=== PATIENT | male | born 1945 | race Caucasian/White ===

== ENCOUNTER 2017-11-15 19:44 | Emergency (ER) | payer SELFPAY ==
[~2017-11-15] VITALS: Ht 172.7 cm; Wt 65.0 kg
[2017-11-16 01:57] VITALS: BP 143/88
== END 2017-11-16 01:57 | disposition home or self-care (01) ==
LOC: ER 20:10
DX: Z59.0 Homelessness (principal)
CPT/HCPCS: 99283

== ENCOUNTER 2017-12-03 12:30 | Emergency (ER) | payer SELFPAY ==
[~2017-12-03] VITALS: Ht 170.2 cm; Wt 63.0 kg
[2017-12-03 12:32] VITALS: BP 125/76
[2017-12-03] MEDS ORDERED: PERMETHRIN 5% CREAM 60GM TOP ONE (13:00)
== END 2017-12-05 14:16 | disposition home or self-care (01) ==
LOC: ER 12-04 17:13
DX: B86 Scabies (principal); E11.9 Type 2 diabetes mellitus without complications; Z59.0 Homelessness
CPT/HCPCS: 99283; Z7610

== ENCOUNTER 2018-06-16 16:30 | Emergency (ER) | payer MEDICAID, MEDICARE ==
[~2018-06-16] VITALS: Ht 177.8 cm; Wt 76.0 kg
[2018-06-16 17:22] VITALS: BP 165/75
== END 2018-06-16 18:44 | disposition home or self-care (01) ==
LOC: ER 16:30
DX: Z59.0 Homelessness (principal)
CPT/HCPCS: 99281